=== PATIENT | female | born 1995 | race Caucasian/White ===

== ENCOUNTER 2016-04-21 11:27 | Emergency (ER) | payer OTHER ==
[2016-04-21 12:50] VITALS: BP 115/69
--- NOTE | 2016-04-21 13:17 | UC ---
Complaint Female HPI - HPI Summary HPI Summary: Patient has had dysuria and hematuriat for 24 hours. Hx of frequent UTIs - History Of Current Complaint Chief Complaint: UCGU Stated Complaint: URINARY COMPLAINT Time Seen by Provider: 04/21/16 12:06 Hx Obtained From: Patient Hx Last Menstrual Period: 04/08 ?: No Onset/Duration: Sudden Onset, Lasting Hours Timing: Constant Severity Initially: Mild Severity Currently: Mild Pain Intensity: 3 Pain Scale Used: 0-10 Numeric Character: Burning Aggravating Factor(s): Urination - Allergies/Home Medications Allergies/Adverse Reactions: Allergies Allergy/AdvReac Type Severity Reaction Status Date / Time Clarithromycin [From Biaxin] Allergy Unknown Unknown Verified 04/21/16 12:50 Reaction Details PMH/Surg Hx/FS Hx/Imm Hx Previously Healthy: Yes Endocrine History Of: Denies: Diabetes, Thyroid Disease Cardiovascular History Of: Denies: Cardiac Disorders, Hypertension Respiratory History Of: Denies: COPD, Asthma GI/ History Of: Denies: Ulcer - Surgical History Surgical History: None - Family History Family History: negative fro hypertension or cardiac disease - Social History Alcohol Use: Occasionally Substance Use Type: None Smoking Status (MU): Former Smoker Type: Cigarettes Amount Used/How Often: 7 CIG/DAY Review of Systems Skin: Negative Eyes: Negative ENT: Negative Respiratory: Negative Cardiovascular: Negative Gastrointestinal: Abdominal Pain Genitourinary: Dysuria, Hematuria, Frequency Motor: Negative Neurovascular: Negative Musculoskeletal: Negative Neurological: Negative Psychological: Negative All Other Systems Reviewed And Are Negative: Yes Physical Exam Triage Information Reviewed: Yes Appearance: Well-Appearing, No Pain Distress, Well-Nourished Vital Signs: Initial Vital Signs Temp 98.8 F 04/21/16 12:40 Pulse 82 04/21/16 12:40 Resp 18 04/21/16 12:40 BP 115/69 04/21/16 12:40 Vital Signs Reviewed: Yes Eye Exam: Normal Eyes: Positive: Conjunctiva Clear ENT Exam: Normal ENT: Positive: Normal ENT inspection, Pharynx normal, TMs normal Dental Exam: Normal Neck exam: Normal Neck: Positive: Supple, Nontender, No Lymphadenopathy Respiratory Exam: Normal Respiratory: Positive: Chest non-tender, Lungs clear, Normal breath sounds Cardiovascular Exam: Normal Cardiovascular: Positive: RRR, No Murmur, Pulses Normal Abdominal Exam: Normal Abdomen Description: Positive: Nontender, No Organomegaly, Soft - no cva tenderness Bowel Sounds: Positive: Present Musculoskeletal Exam: Normal Musculoskeletal: Positive: Strength Intact, ROM Intact, No Edema Neurological Exam: Normal Neurological: Positive: Alert, Muscle Tone Normal Psychological Exam: Normal Skin Exam: Normal Complaint Female Dx - Course Course Of Treatment: hx obtained, exam performed, education given on UTI prevention. Medication prescribed. UA pos, urine culture sent. - Differential Dx/Diagnosis Differential Diagnosis/HQI/PQRI: Sexually Transmitted Disease, Ureteral Stone, Urinary Tract Infection Provider Diagnoses: UTI Discharge - Discharge Plan Condition: Stable Disposition: HOME Prescriptions: Nitrofurantoin Monohyd Macro [Macrobid] 100 mg PO BID #10 cap Patient Education Materials: Urinary Tract Infection in Women (ED) Additional Instructions: Take the medications as prescribed. Stay hydrated. We will call with results of culture if medication needs to be changed.
== END 2016-04-21 13:31 | disposition home or self-care (01) ==
LOC: UCCORT 11:27
DX: N39.0 Urinary tract infection, site not specified (principal); R10.9 Unspecified abdominal pain; R31.9 Hematuria, unspecified; Z87.440 Personal history of urinary (tract) infections; Z88.1 Allergy status to other antibiotic agents; F17.210 Nicotine dependence, cigarettes, uncomplicated
CPT/HCPCS: 87086; 99212; G0463

== ENCOUNTER 2018-02-28 00:59 | Emergency (ER) | payer OTHER ==
[2018-02-28] MEDS ORDERED: Tetracaine 0.5% OPTH.SOL 4 ML* 1 DROP BTL ONE (01:20)
[2018-02-28] MEDS ORDERED: Fluorescein Sodium TOPICAL* 1 MG TEST STRIP ONE ×2 (01:20→01:21)
--- NOTE | 2018-02-28 01:27 | ED ---
Throat Pain/Nasal Congestion - HPI Summary HPI Summary: This patient is a 22 year old F presenting to [facility] accompanied by her mother with a chief complaint of bilateral eye irritation that began at 1800 last night. The patient rates the pain 7/10 in severity. Patient reports photophobia , pain, and redness. Pt reports this happens every time she wears her contacts but it resolves after she takes them out. Last night it did not resolve. - History of Current Complaint Chief Complaint: EDEyeProblem Time Seen by Provider: 02/28/18 01:11 Hx Obtained From: Patient Onset/Duration: Lasting Hours, Still Present Severity: Moderate Associated Signs And Symptoms: Positive: Negative - fever - Allergies/Home Medications Allergies/Adverse Reactions: Allergies Allergy/AdvReac Type Severity Reaction Status Date / Time clarithromycin Allergy Unknown Verified 02/28/18 01:35 Reaction Details PMH/Surg Hx/FS Hx/Imm Hx Endocrine/Hematology History: Denies: Hx Diabetes, Hx Thyroid Disease Cardiovascular History: Denies: Hx Hypertension Respiratory History: Denies: Hx Asthma, Hx Chronic Obstructive Pulmonary Disease (COPD) GI History: Denies: Hx Ulcer Psychiatric History: Denies: Hx of Violent Episodes Against Others Infectious Disease History: No Infectious Disease History: Denies: Hx Hepatitis, Hx Human Immunodeficiency Virus (HIV), History Other Infectious Disease, Traveled Outside the [place] in Last 30 Days - Family History Known Family History: Negative: Cardiac Disease, Hypertension Family History: negative fro hypertension or cardiac disease - Social History Lives: With Family Alcohol Use: Occasionally Substance Use Type: Reports: None Smoking Status (MU): Former Smoker Type: Cigarettes Amount Used/How Often: 7 CIG/DAY Review of Systems Negative: Fever Positive: Photophobia, Erythema, Other - pain All Other Systems Reviewed And Are Negative: Yes Physical Exam - Summary Physical Exam Summary: GENERAL: Patient is a well-developed and nourished F who is lying comfortable in the stretcher. Patient is not in any acute respiratory distress. HEAD AND FACE: Normocephalic EYES: PERRLA, EOMI x 2. Bilateral conjunctiva injection. EARS: Hearing grossly intact. MOUTH: Oropharynx within normal limits. NECK: Supple, trachea is midline, no adenopathy, no JVD, no carotid bruit. CHEST: Symmetric, no tenderness at palpation LUNGS: Clear to auscultation bilaterally. No wheezing or crackles. CVS: Regular rate and rhythm, S1 and S2 present, no murmurs or gallops appreciated. ABDOMEN: Soft, non-tender. Bowel sounds are normal. No abdominal abnormal pulsations. EXTREMITIES: Full ROM in all major joints, no edema, no cyanosis or clubbing. NEURO: Alert and oriented x 3. No acute neurological deficits. Speech is normal and follows commands. SKIN: Dry and warm Fluorescein and tetracaine drops showed: No foreign body seen. No corneal abrasion. Triage Information Reviewed: Yes Vital Signs On Initial Exam: Initial Vitals Temp Pulse Resp BP Pulse Ox 98.0 F 80 16 112/65 99 02/28/18 01:00 02/28/18 01:00 02/28/18 01:00 02/28/18 01:00 02/28/18 01:00 Vital Signs Reviewed: Yes Diagnostics - Vital Signs Vital Signs Temp Pulse Resp BP Pulse Ox 02/28/18 01:00 98.0 F 80 16 112/65 99 - Laboratory Lab Statement: Any lab studies that have been ordered have been reviewed, and results considered in the medical decision making process. EENT Course/Dx - Course Course Of Treatment: This patient is a 22 year old F presenting [facility] accompanied by her mother with a chief complaint of bilateral eye irritation that began at 1800 last night. The patient rates the pain 7/10 in severity. Patient reports photophobia, pain, and redness. Pt reports this happens every time she wears her contacts but it resolves after she takes them out. Last night it did not resolve. There were no corneal abrasion see with fluorescein. Dx bilateral conjuctivis. In the ED course the patient was given Cipro drops and naphcon. She was sent home with the drops along with a description on how to use them. Patient will be discharged and follow up from PCP. The patient is agreeable with this plan. - Diagnoses Provider Diagnoses: Bilateral conjunctivitis Discharge - Sign-Out/Discharge Documenting (check all that apply): Patient Departure - Discharge Plan Condition: Stable Disposition: HOME Patient Education Materials: Conjunctivitis (ED) Forms: *Work Release Referrals: [facility] PHYSICIAN REFERRAL [Outside] Additional Instructions: Follow up with your primary care physician in 1-3 days. RETURN TO THE EMERGENCY DEPARTMENT FOR CHANGING OR WORSENING SYMPTOMS. - Attestation Statements Document Initiated by Scribe: Yes Documenting Scribe: Sai Reynolds Provider For Whom Scribe is Documenting (Include Credential): Deon Garcia MD Scribe Attestation: ISai, scribed for Deon Garcia MD on 02/28/18 at 0142.
[2018-02-28] MEDS ORDERED: Fluorescein Sodium TOPICAL* 1 MG TEST STRIP OPHTHALMIC ONE (01:34)
[2018-02-28] MEDS ORDERED: Tetracaine 0.5% OPTH.SOL 4 ML* 1 DROP BTL BOTH EYES ONE (01:34)
[2018-02-28 01:52] VITALS: BP 0/0
[2018-02-28] MEDS ORDERED: Ciprofloxacin 0.3% OPTH.SOL* 2.5 ML BTL BOTH EYES SCH (02:00)
[2018-02-28] MEDS ORDERED: Naphazoline/Pheniramine OPTH* 5 ML BTL BOTH EYES SCH (09:00)
== END 2018-02-28 01:50 | disposition home or self-care (01) ==
LOC: ED 00:59
DX: H10.33 Unspecified acute conjunctivitis, bilateral (principal); Z88.1 Allergy status to other antibiotic agents; Z87.891 Personal history of nicotine dependence
CPT/HCPCS: 99282; A9270-GY

== ENCOUNTER 2018-12-24 10:40 | Emergency (ER) | payer OTHER ==
[2018-12-24] MEDS ORDERED: Sucralfate TAB* 1 GM PO ONE (11:10)
[2018-12-24 11:49] LABS: Urine Appearance Cloudy; Urine Bilirubin Negative (Negative); Urine Blood Negative (Negative); Urine Color Yellow; Urine Glucose Negative (Negative); Urine Ketones Negative (Negative); Urine Nitrite Negative (Negative); Urine Protein Negative (Negative); Urine Specific Gravity 1.017 (1.010-1.030); Urine Urobilinogen Negative (Negative)
--- NOTE | 2018-12-24 11:55 | ED ---
Abdominal Pain/Female - HPI Summary HPI Summary: 23 year old F presents to [facility] accompanied by boyfriend with a chief complaint of abdominal cramps around upper middle and left abdomen since 2 days ago, worse since today. Symptoms aggravated by nothing. Symptoms alleviated by nothing. Patient is 18 weeks . Patient thought pain was due to gas and took Tums and drank orange juice. Patient reports she experiences similar pain when waking up in the morning but it always goes away and today it was not. Patient reports she felt pain the whole time coming here but the pain has gone away slightly right now. Patient denies chills, fever, diarrhea, constipation, vaginal bleeding, and discharge. Patient reports nausea but goes away. Patient denies any issues during , shx, mhx, use of alcohol, drugs, and smoking. Patient is concerned about baby. Patient takes prenatals and reports her nxt OBGYN apt is in 2 wks. - History of Current Complaint Chief Complaint: EDAbdPanemo Stated Complaint: 18 WEEKS PREG CRAMPING , Time Seen by Provider: 12/24/18 10:51 Hx Obtained From: Patient Hx Last Menstrual Period: 04/08 ?: Yes - 18 weeks Onset/Duration: Lasting Hours, Still Present Pain Intensity: 4 Pain Scale Used: 0-10 Numeric Aggravating Factor(s): Nothing Alleviating Factor(s): Nothing Associated Signs and Symptoms: Positive: Nausea, Other: - denies chills. Negative: Fever, Constipation, Vaginal Bleeding, Vaginal Discharge, Vomiting, Diarrhea Allergies/Adverse Reactions: Allergies Allergy/AdvReac Type Severity Reaction Status Date / Time clarithromycin [From Biaxin] Allergy Hives Verified 12/24/18 10:51 PMH/Surg Hx/FS Hx/Imm Hx Endocrine/Hematology History: Denies: Hx Diabetes, Hx Thyroid Disease Cardiovascular History: Denies: Hx Hypertension Respiratory History: Denies: Hx Asthma, Hx Chronic Obstructive Pulmonary Disease (COPD) GI History: Denies: Hx Ulcer Psychiatric History: Denies: Hx of Violent Episodes Against Others - Surgical History Surgical History: None Surgery Procedure, Year, and Place: None Infectious Disease History: No Infectious Disease History: Denies: Hx Hepatitis, Hx Human Immunodeficiency Virus (HIV), History Other Infectious Disease, Traveled Outside the [place] in Last 30 Days - Family History Known Family History: Negative: Cardiac Disease, Hypertension Family History: negative fro hypertension or cardiac disease - Social History Alcohol Use: None Hx Substance Use: No Substance Use Type: Reports: None Hx Tobacco Use: Yes Smoking Status (MU): Former Smoker Type: Cigarettes Amount Used/How Often: 7 CIG/DAY Review of Systems Negative: Fever, Chills Positive: Abdominal Pain, Nausea, Other - denies constipation. Negative: Diarrhea Genitourinary: Other - denies vaginal bleeding Negative: discharge All Other Systems Reviewed And Are Negative: Yes Physical Exam - Summary Physical Exam Summary: Constitutional: Well-developed, Well-nourished, Alert. (-) Distressed Skin: Warm, Dry HENT: Normocephalic; Atraumatic Eyes: Conjunctiva normal Neck: Musculoskeletal ROM normal neck. (-) JVD, (-) Stridor, (-) Tracheal deviation Cardio: Rhythm regular, rate normal, Heart sounds normal; Intact distal pulses; The pedal pulses are 2+ and symmetric. Radial pulses are 2+ and symmetric. (-) Murmur Pulmonary/Chest wall: Effort normal. (-) Respiratory distress, (-) Wheezes, (-) Rales Abd:Gravid uterus, no tenderness abdominal, Bedside US shows fetus moving around and HR in 140s Musculoskeletal: (-) Edema Lymph: (-) Cervical adenopathy Neuro: Alert, Oriented x3 Psych: Mood and affect Normal Triage Information Reviewed: Yes Vital Signs On Initial Exam: Initial Vitals Temp Pulse Resp BP Pulse Ox 98.1 F 79 16 105/60 100 12/24/18 10:48 12/24/18 10:48 12/24/18 10:48 12/24/18 10:48 12/24/18 10:48 Vital Signs Reviewed: Yes Diagnostics - Vital Signs Vital Signs Temp Pulse Resp BP Pulse Ox 12/24/18 11:38 68 100 12/24/18 11:36 71 101/54 100 12/24/18 10:48 98.1 F 79 16 105/60 100 - Laboratory Lab Results: Lab Results 12/24/18 Range/Units 11:34 Urine Color Yellow Urine Appearance Cloudy Urine pH 7.0 (5-9) Ur Specific Murray 1.017 (1.010-1.030) Urine Protein Negative (Negative) Urine Ketones Negative (Negative) Urine Blood Negative (Negative) Urine Nitrate Negative (Negative) Urine Bilirubin Negative (Negative) Urine Urobilinogen Negative (Negative) Ur Leukocyte Esterase Negative (Negative) Urine Glucose Negative (Negative) Urine Ascorbic Acid * A (Negative) Lab Statement: Any lab studies that have been ordered have been reviewed, and results considered in the medical decision making process. Abdominal Pain Fem Course/Dx - Course Course Of Treatment: Patient is here with left upper quadrant abdominal pain that comes and goes. Patient's symptoms nearly resolved by the time she got here. Patient had a benign abdominal exam with a healthy-appearing fetus on ultrasound. Patient had a negative UA for UTI. Patient was given sucralfate. Patient is discharged a prescription for that. Patient is encouraged to follow up with her [employer]. - Diagnoses Provider Diagnoses: Gastritis, Discharge ED - Sign-Out/Discharge Documenting (check all that apply): Patient Departure - discharge Patient Received Moderate/Deep Sedation with Procedure: No - Discharge Plan Condition: Stable Disposition: HOME Prescriptions: Sucralfate TAB* [Carafate*] 1 gm PO BID 10 Days #20 tab Patient Education Materials: Gastritis (ED) Referrals: Miley Delgado MD [Primary Care Provider] - Additional Instructions: Take medications as prescribed. Call your OBGYN and make an appointment as soon as possible. Come back to the ED for any vaginal bleeding, discharge, or worsening symptoms. - Billing Disposition and Condition Condition: STABLE Disposition: Home - Attestation Statements Document Initiated by Yoel: Yes Documenting Scribe: Iveth Chaney Provider For Whom Yoel is Documenting (Include Credential): Dr. Sotero West MD Scribe Attestation: Iveth Crain scribed for Dr. Sotero West MD on 12/24/18 at 1252. Scribe Documentation Reviewed: Yes Provider Attestation: The documentation as recorded by the Iveth monge accurately reflects the service I personally performed and the decisions made by me, Dr. Sotero West MD Status of Scribsonia Document: Viewed
[2018-12-24 12:10] VITALS: BP 97/58
== END 2018-12-24 13:06 | disposition home or self-care (01) ==
LOC: ED 10:40
DX: O99.612 Diseases of the digestive system complicating pregnancy, second trimester (principal); K92.9 Disease of digestive system, unspecified; Z3A.18 18 weeks gestation of pregnancy; R10.9 Unspecified abdominal pain; R11.0 Nausea; Z87.891 Personal history of nicotine dependence
CPT/HCPCS: 81003; 99282; A9270-GY

== ENCOUNTER 2019-05-23 08:37 | Inpatient (IN) | payer OTHER, MEDICAID ==
[2019-05-23] MEDS ORDERED: Buffered Lidocaine 1% SYRIN* 1 ML/SYRINGE INTRADERM ONE (09:29)
[2019-05-23] MEDS ORDERED: Lactated Ringers 1000 ML Bag* 1,000 ML IV ONE ×2 (09:29→11:04)
--- NOTE | 2019-05-23 09:41 | HP ---
General Information - Reason for Visit Pt reports UCs starting last night around 2300, with increasing frequency and intensity, becoming more regular around 0630. Reports active FM, denies SROM. - General Information Maternal Age: 24 Grav: 1 Para: 0 SAB: 0 IEA: 0 Estimated Due Date: 05/21/19 Determined By: LMP Gestational Age in Weeks/Days: 40 2 Maternal Blood Type and Rh: O Negative - Results this Serology/RPR Result: Non-Reactive Rubella Result: Immune HBsAg Result: Negative HIV Result: Negative GBS Culture Result: Negative Past Medical History Delivery History: See Records - Primigravida Pertinent Past Medical History: See Records - anxiety Pertinent Past Surgical History: None Pertinent Family History: Non-Contributory - Antepartal Records Antepartal Records: Reviewed, Uncomplicated Review of Systems Constitutional: Uncomfortable - strong ctx, coping well CV Complaint: No Respiratory: Shortness of Breath: No Gastrointestinal: No Nausea/Vomiting Genitourinary: No Dysuria, No Bleeding, No Leaking Fluid Musculoskeletal: No Epigastric Pain, Contractions Neurological: No Headache, No Visual Changes Movement: Normal Exam Allergies/Adverse Reactions: Allergies clarithromycin [From Biaxin] Allergy (Verified 12/24/18 10:51) Hives T-98.1, P-102, R-22, BP-117/72, O2-100% - Measurements Height: 5 ft 6 in Weight: 64.41 kg Weight in lbs: 142.832126 Body Mass Index (BMI): 22.8 Pre- Weight: 53.07 kg Weight Gained This : 141.742 lbs and 0.001 ozs - Exam Breast: Breast Exam Deferred CVA: No CVA Tenderness Extremities: No Edema Heart: Normal Rhythm/Heart Sounds HEENT: No Significant Findings Lungs: Clear Bilaterally Rectal: Rectal Exam Deferred Reflexes: DTR 2+ Thyroid: No Thyromegaly - Abdominal Exam Abdomen Exam: Non-Tender, Fundal Height Consistent with Dates - Ultrasound/Biophysical Profile Ultrasound Status: Not Done Targeted Exam Findings See L&D Outpatient Visit Provider Note for Findings: N/A Estimated Weight: 7# Cervical Exam: 2cm Effacement: 100% Station: -1 Presenting Part: Vertex Membrane Status: Intact Bleeding/Discharge: Bloody Show EFM Findings - External Monitor Findings Baseline Heart Rate: 140 External Monitor Findings: Accelerations Present, No Pattern of Variable or Late Decelerations, Variability Moderate, Baseline Stable Contractions: Regular, Moderate, Strong, 45-90 Seconds Contraction Frequency: 2-3 minutes Assessment/Plan - Assessment 24 year old at 40 2/7 weeks gestation in early labor, no evidence of acidemia, membranes intact. - Plan Plan: Admit - Anticipate Vaginal Delivery - Date/Time of Admission Date of Admission: 05/23/19 Time of Admission: 09:15
[2019-05-23] MEDS ORDERED: Lactated Ringers 1000 ML Bag* 1,000 ML IV SCH ×2 (10:00→12:00)
[2019-05-23 10:15] LABS: Urine Appearance Turbid; Urine Bilirubin Negative (Negative); Urine Blood 3+ (Negative); Urine Color Amber; Urine Glucose Negative (Negative); Urine Ketones Trace (Negative); Urine Nitrite Negative (Negative); Urine Protein Negative (Negative); Urine Specific Gravity 1.016 (1.010-1.030); Urine Urobilinogen Negative (Negative)
--- NOTE | 2019-05-23 10:20 | PN ---
Progress Note - Progress Note Date of Service: 05/23/19 SOAP: Subjective: Pt extremely uncomfortable, tried the tub for a bit, now requesting epidural. Mother at bedside, supportive. Objective: FHR: 140 per doppler UCs: 2-3 minutes, moderate to strong Pt declined cervical exam at this time, aware was in early labor but wants to get epidural regardless of dilation, so exam deferred. Membranes intact Assessment: Pt appears to be getting into active labor. No evidence of acidemia. Plan: Will call anesthesia for epidural once IV access established.
[2019-05-23 10:21] LABS: Urine Bacteria Absent (Absent); Urine Red Blood Cell 2+(6-10/hpf) (Absent); Urine Squamous Epithelial Cell Present (Absent); Urine White Blood Cell 3+(>20/hpf) (Absent)
[2019-05-23] MEDS ORDERED: OBEPIDURAL* 250 ML EPIDURAL ONE (10:27)
[2019-05-23 10:33] LABS: ABS Lymphocytes 1.7 10^3/ul (1.0-4.8); ABS Neutrophils 16.2 10^3/ul (1.5-7.7); Hematocrit 37 % (35-47); Hemoglobin 12.4 g/dL (12.0-16.0); Lymphocyte % 8.8 %; Mean Corpuscular HGB Conc 33 g/dL (31-36); Mean Corpuscular Hemoglobin 29 pg (27-31); Mean Corpuscular Volume 85 fL (80-97); Mean Platelet Volume 8.4 fL (7.4-10.4); Platelet Count 303 10^3/uL (150-450); Red Blood Count 4.35 10^6 /uL (3.70-4.87); Red Cell Distribution Width 15 % (10-15); White Blood Count 18.9 10^3/uL (3.5-10.8)
[2019-05-23 10:43] LABS: Urine Benzodiazepine Screen None Detected (None Detect); Urine Opiates Screen None Detected (None Detect)
[2019-05-23] MEDS ORDERED: Phenylephrine 40 MCG/ML SYRINGE IV PUSH PRN ×2 (11:04)
[2019-05-23] MEDS ORDERED: Sodium Citrate/Citric Acid* 15 ML UDC PO PRN (11:04)
--- NOTE | 2019-05-23 11:37 | PN ---
Progress Note - Progress Note Date of Service: 05/23/19 SOAP: Subjective: Pt much more comfortable with epidural although she is still feeling a lot of pressure. Family at bedside, supportive Objective: Cervix: 3 cm/ 100%/ 0 station/ vtx FHR: Currently baseline 140, minimal variability/ no accels/ no decels. Soon after epidural FHR exhibited series of late and variable decels, treated with phenylephrine, fluid bolus, positioning with good resolution. Maternal BPs remained stable throughout. UCs: 3-4 minutes Assessment: Pt making good progress, although still in early active labor. FHR tracing likely reflect decreased perfusion following body's response to epidural. Appears to be in recovery pattern at this time. Plan: Closely monitor FHR. Regular maternal position changes. Will recheck cervix in a few hours or as needed. Anticipate progression to full dilation and .
[2019-05-23] MEDS ORDERED: OBEPIDURAL* 250 ML EPIDURAL SCH (12:00)
--- NOTE | 2019-05-23 13:20 | PN ---
Progress Note - Progress Note Date of Service: 05/23/19 SOAP: Subjective: Pt comfortable with epidural, although she is aware of ctx. Family at bedside. Objective: Cervical exam deferred FHR: Baseline 140/ moderate variability/ + accels/ no decels Temp: 98.4 UCs: 2-3 minutes BP: 116/72 Assessment: Category I FHR tracing. Contractions continue. Plan: Will recheck cervix in an hour or so or as needed. Anticipate progression to full dilation and .
--- NOTE | 2019-05-23 14:46 | PN ---
Progress Note - Progress Note Date of Service: 05/23/19 SOAP: Subjective: Pt increasingly uncomfortable. Reports pain and pressure in lower abdomen and hips. Objective: Cervix: 3-4 cm/ 100%/ head at +1 station, but cervix more posterior. FHR: Baseline 145/ moderate variability/ + accels/ no decels UCs: Q2-3 minutes Temp: 98.4 Assessment: Pt making cervical change but slowly. No evidence of acidemia or chorioamnionitis. Membranes intact. Plan: Encouraged use of epidural bolus button. Pt placed in throne position, recommend 30 minutes in that position, then 30 minutes each side with peanut ball if tolerated. Offered to call anesthesia for additional bolus, pt declines for now, would like to see if bolus button helps first.
[2019-05-23] MEDS ORDERED: Bupivacaine 0.25% SDV PF* 10 ML VIAL INJ ONE (15:06)
--- NOTE | 2019-05-23 17:29 | PN ---
Progress Note - Progress Note Date of Service: 05/23/19 SOAP: Subjective: Pt still uncomfortable with ctx, but declines bolus, not using bolus button much. Pain is mostly in her hips. Objective: FHR: Baseline 140/ moderate variability/ no accels/ no decels UCs: 2-4 minutes Cervix: 6cm/ 100%/ 0 station/ bulging bag Assessment: Pt making good change. No evidence of acidemia or chorioamnionitis. Plan: Epidural bolus as needed. Continue to labor. Consider AROM with next check. Recommend regular position changes. Anticipate progression to complete dilation and .
--- NOTE | 2019-05-23 20:51 | PN ---
Progress Note - Progress Note Date of Service: 05/23/19 SOAP: Subjective: Pt more comfortable following epidural bolus by Dr. Pineda. Trying to rest. Objective: Cervix: 7 cm/ 100%/ +1/ vtx FHR: Baseline 145/ moderate variability/ +accels/ no decels UCs: 3 minutes Fluid blood tinged, otherwise clear Assessment: Pt continues to make slow but steady progress. No evidence of acidemia or chorioamnionitis. Plan: AROM performed. Encourage position changes/ use of peanut ball. Will recheck cervix in 1-2 hours or as needed. Encourage use of epidural bolus button.
[2019-05-23] MEDS ORDERED: Oxytocin in LR* 20 UNITS/1,000 ML BAG IVPB ONE (23:35)
[2019-05-24] MEDS ORDERED: Glycerin ADULT SUPP PR PRN (00:12)
[2019-05-24] MEDS ORDERED: Acetaminophen TAB* 325 MG PO PRN (00:12)
[2019-05-24] MEDS ORDERED: Witch Hazel PAD* JAR TOPICAL PRN (00:12)
[2019-05-24] MEDS ORDERED: Dibucaine 1% 28.35 GM TUBE PR PRN (00:12)
--- NOTE | 2019-05-24 00:34 | PROCNOTE ---
[facility] OB: Delivery Note - Delivery A Date of : 05/23/19 Time of : 23:27 [place] Sex: Male Weight at : 3.67 kg Score 1 Minute: 9 Score 5 Minutes: 9 Gestational Age in Weeks and Days at Delivery: 40 Weeks and 2 Days Delivery Method: Spontaneous Vaginal Labor: Spontaneous Did Patient attempt ?: N/A, No Previous Amniotic Fluid: Clear Estimated Blood Loss: 300 Anesthesia/Analgesia: CEI for Labor Delivered By: Princess Trujillo - Nursery Level of Nursery: Regular/Bedside - Perineum Perineal Injury: 3rd Degree Extension Perineal Injury Comment: small partial 3rd degree Perineal Repair: by Dr. Redmond - Events Delivery Events of Note: Pitocin Only After Delivery, Supplemental O2 to Mother - Additional Delivery Notes Additional Delivery Notes: Pt admitted to L&D in early labor. She soon requested and received an epidural for pain relief. Pt with moderate relief of pain, baby was low in pelvis and she experienced a lot of pressure and hip discomfort, eventually requiring epidural bolused by anesthesiologist. Pt made slow but steady progress eventually reaching full dilation. Pt pushed with good effort, infant was near introitus at start of pushing and pt made steady descent. [facility], attempted to excellence coach pt through slow, controlled delivery of head but she pushed baby out in one push. Shoulders followed without difficulty. placed on maternal abdomen with good tone and vigorous cry. dried and stimulated. After cord pulsation ceased cord clamped x2 and cut by pt's mother. Placenta soon delivered with gentle cord traction. Pitocin started at 250 cc/ hr. Bleeding minimal after initial gush. Dr. Redmond called to evaluate perineal laceration. Cervix protruded outside of introitus. Laceration identified as small partial 3rd degree, repaired by Dr. Redmond using layers of absorbable suture. Bleeding minimal at this time, infant . Anticipate normal course.
[2019-05-24] MEDS ORDERED: Lactated Ringers 1000 ML Bag* 1,000 ML IV SCH (01:00)
[2019-05-24] MEDS ORDERED: Oxytocin in LR* 20 UNITS/1,000 ML BAG IVPB SCH (01:00)
[2019-05-24] MEDS ORDERED: Ammonia Inhalant* 1 EA AMP ONE (02:27)
[2019-05-24] MEDS ORDERED: Lidocaine 1% INJ* 10 MG/ML 30 ML SDV ONE (03:17)
[2019-05-24] MEDS ORDERED: Bupivacaine 0.25% SDV PF* 10 ML VIAL INJ ONE (03:17)
[2019-05-24 07:22] LABS: Hematocrit 26 % (35-47); Hemoglobin 8.8 g/dL (12.0-16.0); Mean Corpuscular HGB Conc 34 g/dL (31-36); Mean Corpuscular Hemoglobin 29 pg (27-31); Mean Corpuscular Volume 86 fL (80-97); Mean Platelet Volume 8.6 fL (7.4-10.4); Platelet Count 236 10^3/uL (150-450); Red Blood Count 3.05 10^6 /uL (3.70-4.87); Red Cell Distribution Width 15 % (10-15); White Blood Count 26.2 10^3/uL (3.5-10.8)
[2019-05-24 07:28] LABS: ABS Basophils 0.1 10^3/ul (0-0.2); ABS Lymphocytes 2.4 10^3/ul (1.0-4.8); ABS Monocytes 1.6 10^3/ul (0-0.8); ABS Neutrophils 22.1 10^3/ul (1.5-7.7); Lymphocyte % 9.2 %
[2019-05-24] MEDS: Ferrous Gluconate TAB* 324 MG TAB PO SCH ×2 (10:00→21:19)
[2019-05-24] MEDS: Docusate CAP* 100 MG PO SCH ×3 (10:00→21:19)
[2019-05-24] MEDS: Ibuprofen TAB* 600 MG PO PRN (10:03)
[2019-05-24 18:32] LABS: ABS Basophils 0.1 10^3/ul (0-0.2); ABS Lymphocytes 3.2 10^3/ul (1.0-4.8); ABS Monocytes 1.2 10^3/ul (0-0.8); ABS Neutrophils 16.2 10^3/ul (1.5-7.7); Eosinophil % 0.2 %; Hematocrit 25 % (35-47); Hemoglobin 8.4 g/dL (12.0-16.0); Lymphocyte % 15.5 %; Mean Corpuscular HGB Conc 33 g/dL (31-36); Mean Corpuscular Hemoglobin 29 pg (27-31); Mean Corpuscular Volume 86 fL (80-97); Mean Platelet Volume 8.3 fL (7.4-10.4); Platelet Count 237 10^3/uL (150-450); Red Blood Count 2.91 10^6 /uL (3.70-4.87); Red Cell Distribution Width 15 % (10-15); White Blood Count 20.7 10^3/uL (3.5-10.8)
[2019-05-24] MEDS ORDERED: RHO D Immune Globulin (HUMAN)* 300 MCG = 1,500 I.U. INJ IM ONE (19:18)
[2019-05-25 08:32] VITALS: BP 112/75
[2019-05-25] MEDS: Docusate CAP* 100 MG PO SCH ×2 (08:32→15:08)
[2019-05-25] MEDS: Ferrous Gluconate TAB* 324 MG TAB PO SCH (08:33)
[2019-05-25] MEDS ORDERED: Varicella Virus Vaccine Live* 0.5 ML VIAL SUBCUT ONE (09:00)
[2019-05-25] MEDS: Ibuprofen TAB* 600 MG PO PRN (15:08)
== END 2019-05-25 16:35 | disposition home or self-care (01) | DRG 542 ==
LOC: MCHOBOUT 08:37 → MCHOB 09:00
PROVIDERS: ADMIT Midwife; ATTEND Midwife
PROC: 10E0XZZ Delivery of Products of Conception, External Approach (ICD-10-PCS; principal; 2019-05-23)
PROC: 10907ZC Drainage of Amniotic Fluid, Therapeutic from Products of Conception, Via Natural or Artificial Opening (ICD-10-PCS; 2019-05-23)
PROC: 4A1HXCZ Monitoring of Products of Conception, Cardiac Rate, External Approach (ICD-10-PCS; 2019-05-23)
PROC: 0DQR0ZZ Repair Anal Sphincter, Open Approach (ICD-10-PCS; 2019-05-23)
DX: O48.0 Post-term pregnancy (principal); Z37.0 Single live birth; O70.20 Third degree perineal laceration during delivery, unspecified; O76 Abnormality in fetal heart rate and rhythm complicating labor and delivery; O90.81 Anemia of the puerperium; O90.89 Other complications of the puerperium, not elsewhere classified; N81.2 Incomplete uterovaginal prolapse; Z88.1 Allergy status to other antibiotic agents; Z3A.40 40 weeks gestation of pregnancy
CPT/HCPCS: 36415; 80307; 81003; 81015; 85025; 85461; 86850; 86900; 86901; 87086; A9270-GY; G0480; J2790; J3490